=== PATIENT | male | born 1935 | race Caucasian/White ===

== ENCOUNTER 2024-07-14 18:28 | Inpatient (IN) | payer MEDICARE, BC, SELFPAY ==
[2024-07-14] VITALS (16 sets, daily range): BP systolic 104–150; BP diastolic 55–100; BMI 23.9; BMI 23.1
--- NOTE | 2024-07-14 13:29 | ED.GENMED ---
History of Present Illness
General
Chief Complaint: Cardiac Symptoms
Source: patient
Exam Limitations: none
Time Seen by Provider: 07/14/24 12:39
Nursing documentation reviewed up to this point in time: agreed with
History of Present Illness
History of Present Illness:
Patient presents ED secondary to persistent left groin pain, after his left leg gave out, causing him to fall to his left side and buttock, nothing down the shower doors in the process. Event happened approximate 1 week ago. Since then, patient
has had persistent pain, but has been able to ambulate, although with mild difficulty. Denies any other injuries from the fall. Denies loss of sensation or weakness. Denies head injury. Denies blurred vision or dizziness.
Past History
Past History
ED Past Medical History: CAD, Hypercholesterolemia and Hypothyroidism
ED Past Surgical History: Cardiac (CABG 1995)
Social History
Tobacco: Non-smoker
Personal:
Employment: Retired
Family History
Family History: Negative Early CAD
Review of Systems
Review of Systems
Allergies reviewed?: Yes
All Other Systems: ROS reviewed and negative except as documented in HPI and ROS
Constitutional: Reports no symptoms
Respiratory: Reports no symptoms
Cardiac: Reports no symptoms
ABD/GI: Reports no symptoms
Musculoskeletal: Reports other (groin pain)
Skin: Reports no symptoms
Neurological: Reports no symptoms
Phy Exam
Physical Exam
Physical Exam:
Physical Exam
General: no apparent distress, not acutely ill. afebrile
Head: nc/at. eomi
Neck: supple. normal range of motion
Abdomen: normal bowel sounds. not tender.
Back: no midline tenderness
Neuro: alert and oriented x 3. no focal neurological deficits
Skin: no rash
Psychiatric: well kept. interactive and cooperative
Extremities: no edema. no calf tenderness. no obvious deformity
Scores
[id number] Score for Afib Stroke Risk
Age in Years (65=0, 65-74=1, >/=75=2): > or = 75
Sex (Female=+1): Male
Congestive Heart Failure History (Yes=+1): No
Hypertension History (Yes=+1): Yes
Stroke/TIA/Thromboembolism History (Yes=+2): No
Vascular Disease History (Yes=+1): Yes
Diabetes Mellitus (Yes=+1): No
Score: 4
Anticoagulation Recommendations: Recommend anticoagulation (as validated in nonvalvular fib)
Course
Orders/Labs/Results
Orders:
Orders
07/14/24 12:53
CR Hip - LT w/wo Pel 2-3 Vw* Urgent
Comment:
Reason For Exam: trauma
Include a pelvis x-ray?: Yes
CR Lumbar Spine Comp Min 4 Vw* Urgent
Comment:
Reason For Exam: trauma
07/14/24 12:54
Physical Therapy Consult [Pt Eval And Treat] Urgent
Activity Level: Ambulate
07/14/24 14:31
Electrocardiogram (*1) Urgent
Reason for Study: Bradycardia / Tachycardia
EKG- Treatment ONCE
07/14/24 14:36
0.9% Sodium Chloride 500 ml [Nss] 500 ml IV BOLUS
Diltiazem 125 mg/125 ml Nss [Cardizem] 125 mg in 125 ml IV NOW
Initial dose in mg/hr, then titrate:: 5
Titrate to keep:: Heart rate 80-100 bpm
Titrate by mg/hr:: 5 mg/hr
Frequency of titrations (minutes):: 15
Maximum dose in mg/hr:: 15
Diltiazem HCl [Cardizem] 10 mg IV NOW STA
07/14/24 14:40
Complete Blood Count/With Diff Urgent
Comprehensive Metabolic Panel Urgent
Magnesium Urgent
TSH Urgent
Troponin I Urgent
07/14/24 15:48
Diltiazem HCl [Cardizem] 20 mg IV NOW STA
07/14/24 15:50
Diltiazem HCl [Cardizem] 15 mg IV NOW STA
07/14/24 15:51
Urinalysis Reflex To Culture Urgent
Date Specimen was Collected: 07/14/24
Time Specimen was Collected: 15:46
Urine Microscopic Reflex Cult Urgent
Urine Culture Urgent
KELSY Source: U
Specimen Description:
Date Specimen was Collected: 07/14/24
Time Specimen was Collected: 15:46
07/14/24 17:41
Heparin Protocol- PTT Orders As Directed
PTT per Heparin protocol: -Obtain CBC and baseline PTT - if not already collected.
-Obtain PTT 6 hours from start of infusion. Then, every 6 hours until 2 consecutive
PTT's are therapeutic. Then, PTT Daily.
-With each rate change, obtain PTT every 6 hours until 2 consecutive PTT's are
therapeutic. Then, PTT Daily.
Notify MD As Directed
Notify physician if: PTT is greater than or equal to 200.
07/14/24 17:42
Echo 2D MMode Color/Doppler Routine
Reason for Study: afib
CARDIOLOGY CONSULT Routine
Consulting Provider: Ajit Colindres
Was physician already notified: Yes
Reason for consult: afib
07/14/24 17:43
Admit/Transfer Patient As Directed
Co-Sign Provider:
Level of Care: Inpatient admission
Assign to:: IVU
Physician / Group: Hospitalist
Diagnosis: Afib
Reason for Hospitalization: Afib
Expected length of stay greater than two midnights?: Yes
ELOS- Estimated Length of Stay in days: 3
I certify the patient meets the requirements for IP care: Yes
PRN Pain Medication Management As Directed
May give lesser potent ordered pain med per pt: Yes
preference::
Protocol:: Medication orders for pain may be administered in a
manner that supports deferring to patient preference
when the pt is:
- Requesting an ordered lesser potent pain medication.
Least to most potent pain medications are defined
as: acetaminophen < NSAID < tramadol < opioids
(morphine, oxycodone, hydromorphone).
- Requesting a lesser dose of the same medication IF
ORDERED.
- Requesting a less intrusive route of administration
if both routes are prescribed by the provider (PO <
IV).
07/14/24 17:44
Code Status As Directed
Resuscitation Status: Full Code
07/14/24 17:45
Heparin 90355 Units/250 ml 25,000 units in 250 ml IV PER PROTOCOL
Weight to be used for heparin protocol in kilograms (kg):: 67.2
Protocol:: Cardiac Tx/Acute Coronary
PTT Goal Range to be used:: PTT 73 to 111 seconds
Order type:: Initial
INITIAL Infusion Dose (UNITS/KG/hr) & then follow protocol:: 12 units/kg/hr
Infusion Dose in UNITS/hr & then follow protocol (UNITS/hr):: 800
INFUSION RATE in mL/hr & then follow protocol (mL/hr):: 8
PTT less than or equal to 64 seconds:: Increase rate by 200 units/hr (+ 2 mL/hr)
PTT 64.1 to 72.9 seconds:: Increase rate by 100 units/hr (+ 1 mL/hr)
PTT 73 to 111 seconds:: Target Range. No change in rate.
PTT 111.1 to 130.9 seconds:: Decrease rate by 100 units/hr (- 1 mL/hr)
PTT 131 to 199.9 seconds:: HOLD for 1 hr. Then decrease rate by 200 units/hr (- 2 mL/hr)
PTT greater than or equal to 200 seconds:: HOLD for 2 hrs & Notify Provider. Then decrease by 200 units/hr (-
2 mL/hr)
Lab follow-up:: Each change, PTT q6h until 2 consecutive are therapeutic. Then PTT
daily.
07/14/24 17:58
PTT Urgent
Comment: Obtain baseline before beginning heparin infusion if not already collected
07/14/24 18:02
Heparin 4,000 units IV NOW STA
07/14/24 18:27
ECG [Electrocardiogram (*1)] Urgent
Reason for Study: Abnormal EKG
Other Reason for Exam: chemical conversion
07/14/24 18:28
EKG- Treatment ONCE
07/14/24 20:00
Metoprolol Xl [Toprol Xl] 50 mg PO BID
07/16/24 06:00
Complete Blood Count/No Diff Q2D
Comment: Notify MD if platelet count is <130,000 or decreases by 50% from baseline
07/18/24 06:00
Complete Blood Count/No Diff Q2D
Comment: Notify MD if platelet count is <130,000 or decreases by 50% from baseline
07/20/24 06:00
Complete Blood Count/No Diff Q2D
Comment: Notify MD if platelet count is <130,000 or decreases by 50% from baseline
07/22/24 06:00
Complete Blood Count/No Diff Q2D
Comment: Notify MD if platelet count is <130,000 or decreases by 50% from baseline
07/24/24 06:00
Complete Blood Count/No Diff Q2D
Comment: Notify MD if platelet count is <130,000 or decreases by 50% from baseline
07/26/24 06:00
Complete Blood Count/No Diff Q2D
Comment: Notify MD if platelet count is <130,000 or decreases by 50% from baseline
07/28/24 06:00
Complete Blood Count/No Diff Q2D
Comment: Notify MD if platelet count is <130,000 or decreases by 50% from baseline
07/30/24 06:00
Complete Blood Count/No Diff Q2D
Comment: Notify MD if platelet count is <130,000 or decreases by 50% from baseline
Abnormal Lab Results
07/14/24 07/14/24
14:40 15:51
RBC 3.80 L 10^6/uL
(4.70-6.10)
Hgb 12.2 L g/dL
(13.0-18.0)
Hct 36.0 L %
(39.0-52.0)
MCV 94.7 H fL
(80.0-94.0)
MCH 32.1 H pg
(27.0-31.0)
Absolute Monos (auto) 0.8 H 10^3/uL
(0.1-0.6)
Monocytes % 11.4 H %
(1.7-9.3)
Chloride 109 H mmol/L
(98-107)
BUN 24 H mg/dl
(9-20)
Creatinine 1.4 H mg/dL
(0.7-1.3)
Leukocyte Esterase Rfl 1+ A
(Negative)
Urine Bacteria (Reflex) Few A
(Negative)
07/14/24 14:40
07/14/24 14:40
Vital Signs
Initial and Last Documented VS:
Initial Vital Signs
Temp Pulse Resp BP Pulse Ox
97.5 F 68 16 150/65 100
07/14/24 12:02 07/14/24 12:02 07/14/24 12:02 07/14/24 12:02 07/14/24 12:02
Last Documented Vital Signs
Temp Pulse Resp BP Pulse Ox
97.5 F 67 26 115/57 95
07/14/24 12:02 07/14/24 19:00 07/14/24 19:00 07/14/24 19:00 07/14/24 18:00
MDM/Problems Addressed
MDM/Problems Addressed:
X-ray: No acute findings. Patient evaluated by physical therapy who recommended walker to be utilized along with continued outpatient physical therapy evaluation and treatment. However, at this time, patient feels comfortable using cane at home
alone.
During observation, patient's heart rate noted to be high. When evaluated, appeared to be irregular. EKG obtained subsequently, which revealed rapid atrial fibrillation, which may also have explain patient's recurrent episodes of dizziness and
weakness over the past 1 week. Will obtain blood work and patient will be treated with IV fluids and Cardizem for rate control. Will discuss with cardiology afterwards regarding anticoagulation and further workup.
Although heart rate improved, still fluctuating between 90s and 120s, on max dose of Cardizem infusion. As such, patient will be admitted for further evaluation and treatment. Will defer anticoagulation to admitting team.
Cardiology, , notified via [facility] text.
Critical care statement: A total of 40 minutes of critical care time was provided for this patient. This includes management of unstable vital signs, evaluation of the patient at bedside, reviewing the patient's pertinent medical records, discussion
with consultants, review of old EKGs and review of pertinent medical records. This time with separate from time utilized to perform the aforementioned documented procedures
*EKG
Interpreted by ED Provider?: Yes
EKG Intrepretation Date: 07/14/24
Heart Rate: 105
Rate: tachycardiac
Rhythm: a-fib
[place]: normal axis
Interval: normal interval
QRS Pattern: right bundle branch block
*Critical Care Note
Total Time (30-74mins, 75-104mins- exclusive of procedures): 40 min
ED Attending Note
-
Portions of this chart may have been created with voice recognition software.� Occasional wrong word or��sound alike� substitutions may have occurred due to the inherent limitations of voice recognition software.
Discharge Plan
Departure
Patient Disposition: Admit
Date of Disposition: 07/14/24
Time of Disposition: 16:52
Admit to: Telemetry
Presentation/result/management discussed w/ accepting MD/DO: Hospitalist
Discharge Problem:
Atrial fibrillation, rapid, Left groin pain
Interventions
Interventions:
*Risk Screen - Suicide Last Done: 07/14/24 12:02
*General Assessment Last Done: 07/14/24 15:03
*Neglect/Abuse Screening Last Done: 07/14/24 12:02
*ED- Fall Risk Assessment Last Done: 07/14/24 17:20
*ED COVID-19 Vaccine History Last Done: 07/14/24 15:03
ED- Cardiac Assessment Last Done: 07/14/24 15:03
ED-Musculoskeletal Assessment Last Done: 07/14/24 15:03
[2024-07-14 14:46] LABS: % Basophils 0.5 % (0-2); % Eosinophils 1.4 % (0-6); % Immature Granulocytes 0.5 % (0-0.5); % Lymphocytes 28.8 % (20.5-51.1); % Monocytes 11.4 % (1.7-9.3); % Neutrophils 57.4 % (42.2-75.2); Absolute Eosinophils 0.1 10^3/uL (0-0.7); Absolute Lymphocytes 1.9 10^3/uL (1.2-3.4); Absolute Monocytes 0.8 10^3/uL (0.1-0.6); Absolute Neutrophils 3.8 10^3/uL (1.4-6.5); Hemoglobin 12.2 g/dL (13.0-18.0); Mean Corp Hgb Conc. 33.9 g/dL (33.0-37.0); Mean Corpuscular Hgb 32.1 pg (27.0-31.0); Mean Corpuscular Volume 94.7 fL (80.0-94.0); Nucleated Red Blood Cells % 0 % (-); Platelet Count 214 10^3/uL (130-400); Red Cell Dist. Width 12.7 % (11.5-14.5); White Blood Cell Count 6.6 10^3/uL (4.8-10.8)
[2024-07-14] MEDS: CARDIZEM 10 MG IV (14:54)
[2024-07-14] MEDS: CARDIZEM 125 IV (14:55)
[2024-07-14] MEDS: NSS 500 IV (14:55)
--- NOTE | 2024-07-14 15:02 | PHANOTE ---
med rec note- patient does not know his medication, forgot his home medication list. he does follow the physician group at [facility] and they are going to fax over the last office notes
[2024-07-14 15:08] LABS: ALT (SGPT) 19 U/L (0-50); AST (SGOT) 30 U/L (17-59); Albumin 4.5 g/dl (3.5-5.0); Alkaline Phosphatase 50 U/L (38-126); Blood Urea Nitrogen 24 mg/dl (9-20); Carbon Dioxide 27 mmol/L (22-30); Chloride 109 mmol/L (98-107); Estimated Creatinine Clearance 33 ml/min; Glucose 97 mg/dl (70-99); Potassium 4.2 mmol/L (3.5-5.1); Sodium 144 mmol/L (135-145); Total Bilirubin 1.2 mg/dl (0.2-1.3); Total Protein 7.4 g/dl (6.3-8.2); eGFR 48.34
[2024-07-14 15:16] LABS: Troponin I < 0.012 ng/ml
[2024-07-14] MEDS: CARDIZEM 15 MG IV (15:55)
[2024-07-14 16:04] LABS: Urine Albumin Negative (Neg - Trace); Urine Bilirubin Negative (Negative); Urine Character Clear (Clear); Urine Color Yellow; Urine Glucose Negative (Negative); Urine Ketone Negative (Negative); Urine Leukocyte 1+ (Negative); Urine Nitrite Negative (Negative); Urine Occult Blood Negative (Negative); Urine Urobilinogen Negative (Neg - 1+); Urine pH 6.5 (5.0-9.0)
[2024-07-14 16:16] LABS: Urine Bacteria Few (Negative); Urine Red Blood Cell 0-2 /HPF (0-2)
[2024-07-14 16:18] LABS: TSH 4.34 uIU/ml (0.47-4.68)
--- NOTE | 2024-07-14 17:45 | HPS.HSE ---
Family Physician
-
Family Physician: Ewelina Archibald
Chief Complaint
-
L hip pain
History of Present Illness
88yo M with PMHx of CAD, HLD, hypothyroidism sent from [facility] due to persistent L hip pain after the fall without LOC happened 1 week ago. No Fx found on imaging, accidental finding of Afib with RVR, approprietly controlled
on maximum cardizem. No chest pain.
Medical History
Past Medical History
Past Medical History: Reports Other
Additional Past Medical History:
see HPI
Past Surgical History: Reports None
Social History
Tobacco: Non-smoker
Alcohol: Occasional
Drug: None
Family History
Family History: Not pertinent
Allergies / Home Medications
Allergies reflects when Allergies were last updated in [employer].
Home Medications with original date entered in [employer]
Allergy/Medication List:
Allergies
Allergy/AdvReac Type Severity Reaction Status Date / Time
No Known Allergies Allergy Verified 05/14/21 11:31
Home Medications
aspirin 81 mg tablet,delayed release 81 mg PO DAILY 02/10/16
atorvastatin 40 mg tablet 40 mg PO DAILY 02/10/16
ramipril 2.5 mg capsule 2.5 mg PO DAILY 02/10/16
famotidine 40 mg tablet (Pepcid) 40 mg PO HS 07/14/24
levothyroxine 88 mcg tablet (Synthroid) 88 mcg PO DAILY 07/14/24
naproxen sodium 220 mg tablet (Aleve) 220 mg PO BIDPRN PRN mild pain 07/14/24
polyethylene glycol 3350 17 gram oral powder packet (Miralax) 17 g PO DAILYPRN PRN constipation 07/14/24
Review of Systems
-
History Source: Patient
A 12 point ROS was completed and negative except as noted: Yes
Musculoskeletal: Reports See HPI
Physical Exam
Vital Signs
Vital Signs
Temp Pulse Resp BP Pulse Ox
97.5 F 92 17 123/75 96
07/14/24 12:02 07/14/24 17:15 07/14/24 17:15 07/14/24 17:15 07/14/24 17:00
Physical Exam
General: Well Developed, Well Nourished and No Apparent Distress
HEENT: NormoCephalic, Anicteric and Moist mucous membranes
Respiratory: Clear; No Wheezes or Rhonchi
Cardiac: S1/S2 and Irregular Rhythm; No Murmur
GI: Soft, Non Tender and Non Distended
Genito-urinary: No costovertebral tender
Musculoskeletal: No Clubbing, No Cyanosis and No Edema
Skin: Warm; No Rash or Jaundice
Neuro: Awake, Alert, Oriented, AO x 3 and No Motor Deficits
Psych: Calm
Laboratory Results
-
07/14/24 14:40
07/14/24 14:40
Laboratory Results
Total Bilirubin 1.2 mg/dl (0.2-1.3) 07/14/24 14:40
AST 30 U/L (17-59) 07/14/24 14:40
ALT 19 U/L (0-50) 07/14/24 14:40
Alkaline Phosphatase 50 U/L (38-126) 07/14/24 14:40
Troponin I < 0.012 ng/ml 07/14/24 14:40
Data Reviewed
-
Diagnostic Radiology: Report Reviewed by me
Lab Data: Labs Reviewed by me
Impression/Plan
-
A/P:
#Afib with RVR
#CAD, stable
Heparin drip
Cardizem drip
start Toprol
TSH WNL
Telemetry
Cardiology consult
Echo
Might be a candidate to stop ASA while on AC to prevent increased risk of bleeding - defer to cardio
#Fall w/o LOC with L hip pain
able to ambulate, no concern for hip instability on XR
No lumbar spine abnormality
PT/OT
#positive UA
no fever, no leukocytosis, no dysuria
suspect asymptomatic bacteriuria
follow off Abx
#GERD
#Hypothyroidism
#HLD
#Essential HTN
#CKD stage 3b
cotn ramipril
follow Cr
DVT ppx on hep drip
Full code - discussed with patient in details
I have spent at least 78min admitting the patient
[2024-07-14 18:16] LABS: APTT 33.5 Sec (23.4-35.0)
[2024-07-14] MEDS: HEPARIN 4000 UNITS IV (19:25)
[2024-07-14] MEDS: HEPARIN 25000 UNITS/250 ML IV (19:26)
[2024-07-14] MEDS: TOPROL XL 50 MG PO (20:47)
--- NOTE | 2024-07-14 20:59 | EDRN ---
Transported after report called.
[2024-07-14] MEDS: PEPCID 40 MG PO (23:04)
--- NOTE | 2024-07-14 23:12 | PTCARENOTE ---
Received patient from ED. SR on the monitor, HR in the 70s. VSS on room air. Alert and oriented to self and place, disoriented to the year, forgetful, bed alarm in place. Heparin running as per protocol, see documentation. Cardizem discontinued.
Oriented pt to room, admission assessment completed. L upper arm wound redressed. No complaints from pt at this time, call ye within reach.
[2024-07-15] VITALS (7 sets, daily range): BP systolic 117–148; BP diastolic 48–124; PULSE 63
[2024-07-15 02:22] LABS: % Basophils 0.9 % (0-2); % Eosinophils 2.2 % (0-6); % Immature Granulocytes 0.4 % (0-0.5); % Lymphocytes 25.8 % (20.5-51.1); % Monocytes 10.8 % (1.7-9.3); % Neutrophils 59.9 % (42.2-75.2); Absolute Basophils 0.1 10^3/uL (0-0.2); Absolute Eosinophils 0.1 10^3/uL (0-0.7); Absolute Lymphocytes 1.4 10^3/uL (1.2-3.4); Absolute Monocytes 0.6 10^3/uL (0.1-0.6); Absolute Neutrophils 3.3 10^3/uL (1.4-6.5); Hematocrit 30.2 % (39.0-52.0); Hemoglobin 10.6 g/dL (13.0-18.0); Mean Corp Hgb Conc. 35.1 g/dL (33.0-37.0); Mean Corpuscular Hgb 32.5 pg (27.0-31.0); Mean Corpuscular Volume 92.6 fL (80.0-94.0); Mean Platelet Volume 10.3 fL (7.4-10.4); Nucleated Red Blood Cells % 0 % (-); Platelet Count 194 10^3/uL (130-400); Red Blood Cell Count 3.26 10^6/uL (4.70-6.10); Red Cell Dist. Width 12.7 % (11.5-14.5); White Blood Cell Count 5.6 10^3/uL (4.8-10.8)
[2024-07-15 02:29] LABS: APTT 110.5 Sec (23.4-35.0)
[2024-07-15 03:33] LABS: ALT (SGPT) 16 U/L (0-50); AST (SGOT) 26 U/L (17-59); Albumin 3.6 g/dl (3.5-5.0); Alkaline Phosphatase 32 U/L (38-126); Blood Urea Nitrogen 23 mg/dl (9-20); Calcium 9.4 mg/dl (8.4-10.2); Carbon Dioxide 23 mmol/L (22-30); Chloride 112 mmol/L (98-107); Estimated Creatinine Clearance 33 ml/min; Glucose 103 mg/dl (70-99); Potassium 4.2 mmol/L (3.5-5.1); Sodium 141 mmol/L (135-145); Total Bilirubin 0.9 mg/dl (0.2-1.3); Total Protein 6.1 g/dl (6.3-8.2); eGFR 48.34
[2024-07-15] MEDS: SYNTHROID 88 MCG PO (05:59)
--- NOTE | 2024-07-15 08:00 | PTCARENOTE ---
received report from previous RN at change of shift. pt resting comfortably in bed, AAOX3- forgetful at times. SR/SB on telemetry heart rate 50-60s. pulses palpable no edema. pt on room air, sat 98%. lung sounds clear. active bowel sounds. voiding
in bathroom/urinal. heparin gtt infusing per protocol. pt updated on plan of care. see worklist for full nursing assessment
[2024-07-15] MEDS: ALTACE 2.5 MG PO (08:04)
[2024-07-15] MEDS: TOPROL XL 50 MG PO (08:05)
[2024-07-15] MEDS: ASPIR LOW (ENTERIC COATED) 81 MG PO (08:05)
[2024-07-15] MEDS: LIPITOR 40 MG PO (08:05)
[2024-07-15 08:55] LABS: APTT 95.1 Sec (23.4-35.0)
--- NOTE | 2024-07-15 09:04 | CON.CAR ---
Addendum entered and electronically signed by Ajit Colindres MD 07/15/24 13:16:
Patient seen and examined in collaboration with [employer]; agree with below.
- 88-year-old male with coronary artery disease status-post CABG (1995), hypertension, CKD, right bundle branch block admitted after mechanical fall at home; found to have new onset atrial fibrillation.
- The patient is asymptomatic in terms of his atrial fibrillation.
- The patient is not on any rate-controlling medications at home; recommend decreasing Toprol dose that was initiated in the hospital (50 mg BID) to 25 mg once daily, as patient is beta-jayashree na�ve.
- If echocardiogram today is unremarkable, the patient can be discharged to home on Eliquis with outpatient Cardiology follow-up.
Original Note:
Consultation
Consultation Request
Date/Time Consultation Requested: 07/14/241741
Date/Time Consultation Performed: 07/15/24 0902
Requesting Provider: Dr. Henriquez
Performing Provider: Colleen GONZALEZ for Dr. Colindres
Reason for Consultation: AFIB
Medical History
-
Chief Complaint: gluteal pain s/p fall
History of Present Illness:
88 y/o male (now follows with Dr. Carson) with CAD s/p CABG 96, hypertension, CKDIII, RBBB, and dyslipidemia who is here for gluteal pain after he fell about a week ago. He was walking in the dark and his left leg, which has been causing him
trouble, gave out and he fell into the shower. There was no dizziness or syncope. He was able to get up, but his gluteal region and leg were hurting since. We are consulted since he was seen to be in AFIB with RVR and required IV diltiazem. He was
not symptomatic. He is now in SR and has been since 6 PM last evening. He was placed on IV heparin.
Past Medical History
Past Medical History: CAD, HTN, Hypercholesterolemia and Other (as above)
Social History
Tobacco: Non-Smoker
Family History
Family History: Reviewed & Not Pertinent
Allergies / Home Medications
Allergy/AdvReac Type Severity Reaction Status Date / Time
No Known Allergies Allergy Verified 05/14/21 11:31
�Medication �Instructions �Recorded �Confirmed �Type
aspirin 81 mg tablet,delayed 81 mg PO DAILY 02/10/16 07/14/24 History
release
atorvastatin 40 mg tablet 40 mg PO DAILY 02/10/16 07/14/24 History
ramipril 2.5 mg capsule 2.5 mg PO DAILY 02/10/16 07/14/24 History
famotidine 40 mg tablet (Pepcid) 40 mg PO HS 07/14/24 07/14/24 History
levothyroxine 88 mcg tablet 88 mcg PO DAILY 07/14/24 07/14/24 History
(Synthroid)
naproxen sodium 220 mg tablet 220 mg PO BIDPRN PRN mild pain 07/14/24 07/14/24 History
(Aleve)
polyethylene glycol 3350 17 gram 17 g PO DAILYPRN PRN constipation 07/14/24 07/14/24 History
oral powder packet (Miralax)
Review of Systems
-
History Source: Patient
All other systems: Negative unless noted
Musculoskeletal: Other (fall with gluteal pain)
Physical Exam
Vital Signs
Temp Pulse Resp BP Pulse Ox
98.1 F 68 20 148/98 98
07/15/24 07:31 07/15/24 08:33 07/15/24 07:31 07/15/24 08:33 07/15/24 08:00
Lab Results
07/15/24 01:57
07/15/24 01:57
Troponin I < 0.012 ng/ml 07/14/24 14:40
Physical Exam
General: Well Developed, Well Nourished and No Apparent Distress
HEENT: Normocephalic and Anicteric
Respiratory: Clear and Non Labored Respirations
Cardiac: Regular Rhythm
Musculoskeletal: No Edema
Skin: Warm and Dry
Neuro: AO x 3
Psych: Calm
Impression / Plan
-
Fall with pain: pain improved
-no fractures on imaging
-this is the only fall that he has had and there was no dizziness or syncope. It was dark in the room and his left leg gave him trouble. He has been seen by PT.
AFIB:
-new diagnosis, paroxysmal
-back in SR
-metoprolol XL 50 mg PO daily
-[id number] score is 4 for age, CAD, HTN. He is on heparin, continue IV for now (requires intensive monitoring), but after echo if EF normal, will transition to Eliquis- current dose 5 mg PO BID, but need to keep an eye on creatinine, which has
been higher than 1.4 in the past. If consistently 1.5 or greater, would be 2.5 mg dosing. Can stop aspirin with addition of Eliquis. He does not have frequent falls or bleeding issues. We discussed OAC safety.
-TSH WNL
CAD with hx CABG 1995:
-transition to Eliquis as noted. Continue statin.
HTN:
-monitor with addition of metoprolol
Data Reviewed
-
EKG: Tracing Personally Visualized and interpreted
Radiology: Report Reviewed by me (hip XR: No radiographically demonstrable osseous fracture. No dislocation. Moderate hip joint space narrowing.)
Medical Tests (Nuc Med, Echo etc): Report Reviewed by me
Labs: Labs Reviewed by me
--- NOTE | 2024-07-15 10:07 | W.PN.HOSP.TC ---
Today's Communication/Plan
-
Cleared by cardiology for discharge today
Assessment / Plan
Assessment / Plan
HPI: 88yo M with PMHx of CAD, HLD, hypothyroidism sent from [facility] due to persistent L hip pain after the fall without LOC happened 1 week ago. No Fx found on imaging, accidental finding of Afib with RVR, approprietly
controlled on maximum cardizem. No chest pain.
#New onset atrial fibrillation with RVR
Back in normal sinus rhythm status post IV Cardizem drip
TSH normal, echo reviewed
Appreciate cardiology input, change IV heparin drip to Eliquis 5 mg twice a day
Decrease Toprol XL that was started this admission to 25 mg daily
Discontinue aspirin
Cleared by cardiology for discharge
#Fall w/o LOC with L hip pain
Able to ambulate, no concern for hip instability on XR
No lumbar spine abnormality
PT/OT -recommend outpatient PT -paper prescription provided
Patient declined home care
Counseled patient to take Tylenol for pain, instead of naproxen or other NSAIDs
#Hypothyroidism
Continue levothyroxine
#Hyperlipidemia
Continue statin
#Stage IIIb chronic kidney disease
Creatinine at baseline, continue ramipril
DVT prophylaxis�Eliquis
Full code
Updated friend at bedside
Physical Exam
General: No acute distress
HEENT: Normocephalic, Atraumatic, EOMI, MMM
Respiratory: Clear to Auscultation bilaterally
Cardiac: Normal S1/S2, Regular Rate and Rhythm
GI: Soft, Nontender, Nondistended, Normal Bowel Sounds
Extremities: No Clubbing, Cyanosis, or Edema
Neuro: Nonfocal/Grossly Intact
Psych: Calm, Cooperative
Derm: No Visible lesions
Anticipated Discharge: Today
Subjective/Interval History
-
Date of Service: July 15, 2024
Patient denies chest pain, denies shortness of breath. No fever, no vomiting. No palpitations, no lightheadedness. He is requesting discharge.
Objective Data
-
Labs:
Laboratory Results
07/15/24 07/15/24
01:57 08:29
WBC 5.6
Hgb 10.6 L
Hct 30.2 L
Plt Count 194
APTT 110.5 H 95.1 H
Sodium 141
Potassium 4.2
Chloride 112 H
Carbon Dioxide 23
BUN 23 H
Creatinine 1.4 H
Glucose 103 H
Calcium 9.4
Total Bilirubin 0.9
AST 26
ALT 16
Alkaline Phosphatase 32 L
Vital Signs:
Vital Signs
Temp Pulse Resp BP Pulse Ox
98.1 F 68 20 148/98 98
07/15/24 07:31 07/15/24 08:33 07/15/24 07:31 07/15/24 08:33 07/15/24 08:00
I&O
07/14/24 07/15/24 07/16/24
06:59 06:59 06:59
Intake Total 480 / 480
Output Total 500 / 500
Balance -500 / -500 480 / 480
--- NOTE | 2024-07-15 10:12 | CM ---
Addendum entered by Autumn Baxter 07/15/24 15:57:
Received VNA consult. Met with Mr. Lema to review VNA Services. At this time he is declining VNA Services.
Original Note:
Reviewed chart. Met with Mr. Lema to review discharge plans. He states prior to admission he resides alone in a fifth floor apartment. He uses the elevator to get to his apartment. He states he has been there for six years. He states prior to
admission he was independent with ambulation and adls He states he has a single point cane at home. We reviewed getting a walker here before he goes home. He declines the walker. He has a single point cane at home and no other DME in the home. He
states he has a prescription plan and uses [facility] mail order and [facility] when needed. Telephone call to [facility] to check on co-pay for Eliquis 5 mg po bid. He has coverage and his co-pay would be $35.00 a month. [facility] has Eliquis 5 mg
po in stock. He can use the one month free coupon and placed the Eliquis coupon in his red discharge folder. Medical work-up in progress. The discharge plan is to return home when medically stable.
[2024-07-15] MEDS: ELIQUIS 5 MG PO (15:06)
== END 2024-07-15 18:15 | disposition home or self-care (01) | DRG 310 ==
LOC: IVU 18:28
PROVIDERS: ADMITTING PHYSICIAN Internal Medicine; ATTENDING PHYSICIAN Family Medicine; CONSULT PHYSICIAN Internal Medicine; EMERGENCY PHYSICIAN Emergency Medicine; REFERRING PHYSICIAN Internal Medicine
DX: I48.91 Unspecified atrial fibrillation (principal); I45.10 Unspecified right bundle-branch block; E03.9 Hypothyroidism, unspecified; E78.00 Pure hypercholesterolemia, unspecified; I25.10 Atherosclerotic heart disease of native coronary artery without angina pectoris; K21.9 Gastro-esophageal reflux disease without esophagitis; I12.9 Hypertensive chronic kidney disease with stage 1 through stage 4 chronic kidney disease, or unspecified chronic kidney disease; N18.32 Chronic kidney disease, stage 3b; M25.552 Pain in left hip; W18.30XA Fall on same level, unspecified, initial encounter; Y93.9 Activity, unspecified; Y92.099 Unspecified place in other non-institutional residence as the place of occurrence of the external cause; Z79.82 Long term (current) use of aspirin; Z79.1 Long term (current) use of non-steroidal anti-inflammatories (NSAID); Z79.890 Hormone replacement therapy; Z95.1 Presence of aortocoronary bypass graft
CPT/HCPCS: 72110; 73502; 80053; 81003; 81015; 83735; 84443; 84484; 85025; 85730; 87070; 87086; 93005; 93306; 96361; 96374; 96375; 96376; 97167; 97535; 99291; Q9950